=== PATIENT | male | born 1960 | race Caucasian/White ===

== ENCOUNTER 2018-06-17 08:09 | Day surgery (SDC) | payer OTHER ==
[2018-06-10 18:17] VITALS: BMI 31.5
[2018-06-17] MEDS ORDERED: PROPOFOL 20 ML ONE ×2 (08:13)
[2018-06-17] MEDS ORDERED: LIDOCAINE HCL/PF 2% SDV 5ML VIAL ONE (08:13)
[2018-06-17 08:25] VITALS: TEMP 98.4
[2018-06-17 10:17] VITALS: BP 108/64; PULSE 48
--- NOTE | 2018-06-20 16:19 | PATH ---
Surgical Pathology Report Patient Name: NAIF ZHANG [facility]. Rec. #: [id number] /Age/Gender: 1960 (Age: 57) / M Account: [id number] Location: [place] Pathology Taken: 06/17/2018 Received: 06/17/2018 Reported: 06/20/2018 Physicians: Deep Marmolejo M.D. Specimen(s) Received A: PROXIMAL RIGHT COLON B: LEFT COLON (PROXIMAL) C: LEFT COLON D: PROXIMAL SIGMOID Clinical History History of polyps Postoperative diagnosis colon polyps Final Diagnosis A. proximal right colon, polyp, biopsy: sessile serrated polyp. B. proximal left colon, polyp, biopsy: sessile serrated polyp. c. left colon, polyp, biopsy: sessile serrated polyp. D. proximal sigmoid, polyp, biopsy: sessile serrated polyp. Electronically Signed Luz Maria Kahn M.D. Gross Description A. Received in formalin, labeled "proximal right colon" is a fang, irregular portion of soft tissue measuring 1 x 1 x 0.1 cm. in aggregate The specimen is submitted in toto in one cassette. B. Received in formalin, labeled "proximal left colon" are 4 fang, irregular portions of soft tissue ranging in size from 0.1-0.5 cm. in greatest dimension. The specimens are submitted in toto in one cassette. C. Received in formalin, labeled "left colon" is a fang, irregular portion of soft tissue measuring 0.3 cm. in greatest dimension. The specimen is submitted in toto in one cassette. D. Received in formalin, labeled "proximal sigmoid" is a fang, irregular portion of soft tissue measuring 0.3 cm. in greatest dimension. The specimen is submitted in toto in one cassette. MLSZ/06/17/2018 sanml/06/17/2018
== END 2018-06-17 10:15 | disposition home or self-care (01) ==
LOC: FASU-ENDO 08:09
PROVIDERS: ATTEND Internal Medicine Gastroenterology
PROC: 0DBM8ZX Excision of Descending Colon, Via Natural or Artificial Opening Endoscopic, Diagnostic (ICD-10-PCS; 2018-06-17)
PROC: 0DBN8ZX Excision of Sigmoid Colon, Via Natural or Artificial Opening Endoscopic, Diagnostic (ICD-10-PCS; 2018-06-17)
PROC: 0DBK8ZX Excision of Ascending Colon, Via Natural or Artificial Opening Endoscopic, Diagnostic (ICD-10-PCS; principal; 2018-06-17 09:11)
PROC: 0DBM8ZX Excision of Descending Colon, Via Natural or Artificial Opening Endoscopic, Diagnostic (ICD-10-PCS; 2018-06-17 09:11)
DX: Z86.010 Personal history of colon polyps (principal); D12.2 Benign neoplasm of ascending colon; D12.4 Benign neoplasm of descending colon; D12.5 Benign neoplasm of sigmoid colon
CPT/HCPCS: 88305-TC

== ENCOUNTER 2022-11-27 10:27 | Day surgery (SDC) | payer BC ==
[2022-11-23 14:22] VITALS: BMI 31.5
[2022-11-27 12:01] VITALS: RESP 16; TEMP 97.6
[2022-11-27 12:16] VITALS: BP 118/60; PULSE 61
== END 2022-11-27 12:25 | disposition home or self-care (01) ==
LOC: FASU-ENDO 10:27
PROVIDERS: ATTEND Internal Medicine Gastroenterology
PROC: 0DBL8ZX Excision of Transverse Colon, Via Natural or Artificial Opening Endoscopic, Diagnostic (ICD-10-PCS; 2022-11-27)
PROC: 0DBN8ZX Excision of Sigmoid Colon, Via Natural or Artificial Opening Endoscopic, Diagnostic (ICD-10-PCS; 2022-11-27)
PROC: 0DBM8ZX Excision of Descending Colon, Via Natural or Artificial Opening Endoscopic, Diagnostic (ICD-10-PCS; principal; 2022-11-27 11:30)
DX: Z12.11 Encounter for screening for malignant neoplasm of colon (principal); K63.5 Polyp of colon; K63.89 Other specified diseases of intestine; Z86.010 Personal history of colon polyps
CPT/HCPCS: 88305-TC